=== PATIENT | male | born 1990 | race Caucasian/White ===

== ENCOUNTER 2024-11-17 21:31 | Inpatient (IN) | payer OTHER ==
[~2024-11-17] VITALS: Ht 175.3 cm; Wt 80.9 kg
[2024-11-17 22:28] LABS: CHLORIDE 104 mEq/L (98-107); POTASSIUM 3.9 mEq/L (3.5-5.1); SODIUM 143 mEq/L (136-145)
[2024-11-17 22:29] LABS: CARBON DIOXIDE 28 mEq/L (21-32)
[2024-11-17 22:30] LABS: CALCIUM 9.8 mg/dL (8.7-10.4)
[2024-11-17 22:33] LABS: BASOPHILS % 0.1 % (0.0-2.0); EOSINOPHILS % 2.9 % (0.0-5.0); HEMATOCRIT. 46.4 % (42.0-52.0); HEMOGLOBIN. 15.2 g/dL (14.0-18.0); LYMPHOCYTES % 23.6 % (20.0-50.0); MEAN CORPUSCULAR HEMOGLOBIN 30.5 pg (28.0-32.0); MEAN CORPUSCULAR HGB CONC 32.8 g/dL (31.0-37.0); MEAN CORPUSCULAR VOLUME 92.9 fL (80.0-94.0); MEAN PLATELET VOLUME 8.4 fl (7.4-10.4); MONOCYTES % 10.4 % (2.0-8.0); PLATELET 197 x1000/uL (130-400); RED BLOOD CELL COUNT 4.99 mill/uL (4.7-6.1); RED CELL DISTRIBUTION WIDTH 12.4 % (11.6-14.6); WHITE BLOOD COUNT 8.2 x1000/uL (4.5-11.0)
[2024-11-17 22:34] LABS: CREATININE 1.2 mg/dL (0.6-1.3); GLUCOSE 85 mg/dL (70-105); UREA NITROGEN BLOOD 17 mg/dL (9-23)
[2024-11-17 22:36] LABS: TROPONIN I HIGH SENSITIVITY < 4 ng/L (3.0-53)
[2024-11-17 23:09] LABS: PROTHROMBIN TIME 11.1 sec (9.6-11.0)
[2024-11-18] MEDS ORDERED: ONDANSETRON HCL 4MG/2ML INJ IV PRN (07:15)
[2024-11-18] MEDS ORDERED: ACETAMINOPHEN 325MG TABLET PO PRN ×2 (07:15)
[2024-11-18] MEDS: SODIUM CHLORIDE 0.9% 1,000 ML IV SCH (12:15)
[2024-11-18 14:25] VITALS: BP 119/78; PULSE 68; RESP 12; TEMP 36.6; O2SAT 98
[2024-11-18 14:39] VITALS: BP 119/78; PULSE 68; RESP 12; TEMP 36.6
[2024-11-18 17:03] LABS: *AMPHETAMINES SCREEN URINE NEGATIVE (NEGATIVE); *BENZODIAZEPINES SCREEN URINE NEGATIVE (NEGATIVE)
[2024-11-18 17:04] LABS: *BARBITURATES SCREEN URINE NEGATIVE (NEGATIVE); *COCAINE SCREEN URINE NEGATIVE (NEGATIVE); CANNABINOID URINE SCREEN PRESUMPTIVE POSITIVE (NEGATIVE); ECSTASY MDMA SCREEN URINE NEGATIVE (NEGATIVE); METHADONE URINE SCREEN NEGATIVE (NEGATIVE); OPIATES URINE SCREEN NEGATIVE (NEGATIVE); PHENCYCLIDINE URINE SCREEN NEGATIVE (NEGATIVE)
[2024-11-18 17:30] LABS: CLARITY URINE CLEAR (CLEAR); COLOR URINE YELLOW (YELLOW); GLUCOSE URINE NEGATIVE (NEGATIVE); KETONES URINE NEGATIVE (NEGATIVE); LEUKOCYTE ESTERASE URINE NEGATIVE (NEGATIVE); NITRITE URINE NEGATIVE (NEGATIVE); OCCULT BLOOD URINE NEGATIVE (NEGATIVE); PROTEIN URINE NEGATIVE (NEGATIVE); UROBILINOGEN URINE 0.2 E.U./dL (0.2-1.0)
[2024-11-18 20:00] VITALS: BP 118/65; PULSE 82; RESP 21; TEMP 36.7; O2SAT 95
[2024-11-19] VITALS: BP 106/69; PULSE 91; RESP 19; TEMP 36.8; O2SAT 96
[2024-11-19 04:00] VITALS: BP 112/77; PULSE 83; RESP 18; TEMP 36.6; O2SAT 98
[2024-11-19 06:34] LABS: HEPATITIS B SURFACE ANTIGEN NEGATIVE (Negative)
[2024-11-19 06:55] LABS: HEPATITIS C AB NON REACTIVE (Neg) (Negative)
[2024-11-19 06:58] LABS: HEMATOCRIT 32.3 % (42.0-52.0); MEAN CORPUSCULAR HEMOGLOBIN 31.7 pg (28.0-32.0); MEAN CORPUSCULAR HGB CONC 33.9 g/dL (31.0-37.0); MEAN CORPUSCULAR VOLUME 93.4 fL (80.0-94.0); PLATELET 386 x1000/uL (130-400); RED BLOOD CELL COUNT 3.46 mill/uL (4.7-6.1); RED CELL DISTRIBUTION WIDTH 12.8 % (11.6-14.6); WHITE BLOOD COUNT 15.9 x1000/uL (4.5-11.0)
[2024-11-19 08:00] VITALS: BP 95/62; PULSE 64; RESP 14; TEMP 36.8; O2SAT 97
[2024-11-19 12:00] VITALS: BP 112/81; PULSE 85; RESP 12; TEMP 36.6; O2SAT 97
[2024-11-19 16:00] VITALS: BP 115/89; PULSE 74; RESP 19; TEMP 36.7; O2SAT 97
[2024-11-19 17:01] LABS: CARBON DIOXIDE 26 mEq/L (21-32); CHLORIDE 105 mEq/L (98-107); POTASSIUM 4.3 mEq/L (3.5-5.1); SODIUM 141 mEq/L (136-145)
[2024-11-19 17:02] LABS: CALCIUM 9.2 mg/dL (8.7-10.4)
[2024-11-19 17:06] LABS: IRON 95 ug/dL (65-175)
[2024-11-19 17:07] LABS: GLUCOSE 77 mg/dL (70-105); UREA NITROGEN BLOOD 10 mg/dL (9-23)
[2024-11-19 17:08] LABS: ALANINE AMINOTRANSFERASE 23 IU/L (10-49)
[2024-11-19 17:09] LABS: ALBUMIN 4.2 g/dL (3.2-4.8); ASPARTATE AMINOTRANSFERASE 15 IU/L (<34); BILIRUBIN DIRECT 0.2 mg/dL (<=3.0); BILIRUBIN TOTAL 0.7 mg/dL (0.1-1.0); PHOSPHORUS 3.1 mg/dL (2.5-4.9); TOTAL IRON BINDING CAPACITY 140 ug/dl (250-425)
[2024-11-19 17:14] LABS: FERRITIN 216 ng/mL (22-322); FOLIC ACID (FOLATE) SERUM 13.53 ng/mL (>5.38)
[2024-11-19 17:15] LABS: VITAMIN B12 SERUM 587 pg/mL (211-911)
[2024-11-19 20:00] VITALS: BP 127/80; PULSE 80; RESP 16; TEMP 37.2; O2SAT 97
[2024-11-20] VITALS: BP 124/88; PULSE 99; RESP 18; TEMP 36.8; O2SAT 98
[2024-11-20 04:00] VITALS: BP 98/72; PULSE 66; RESP 12; TEMP 36.6; O2SAT 94
[2024-11-20 07:32] LABS: CARBON DIOXIDE 26 mEq/L (21-32); CHLORIDE 105 mEq/L (98-107); POTASSIUM 3.8 mEq/L (3.5-5.1); SODIUM 140 mEq/L (136-145)
[2024-11-20 07:33] LABS: CALCIUM 8.9 mg/dL (8.7-10.4)
[2024-11-20 07:38] LABS: GLUCOSE 92 mg/dL (70-105); UREA NITROGEN BLOOD 8 mg/dL (9-23)
[2024-11-20 07:41] LABS: EOSINOPHILS % 4.5 % (0.0-5.0); HEMATOCRIT. 44.2 % (42.0-52.0); HEMOGLOBIN. 14.7 g/dL (14.0-18.0); LYMPHOCYTES % 36.2 % (20.0-50.0); MEAN CORPUSCULAR HEMOGLOBIN 30.8 pg (28.0-32.0); MEAN CORPUSCULAR HGB CONC 33.1 g/dL (31.0-37.0); MEAN CORPUSCULAR VOLUME 92.9 fL (80.0-94.0); MEAN PLATELET VOLUME 8.9 fl (7.4-10.4); MONOCYTES % 11.3 % (2.0-8.0); PLATELET 173 x1000/uL (130-400); RED BLOOD CELL COUNT 4.76 mill/uL (4.7-6.1); RED CELL DISTRIBUTION WIDTH 12.2 % (11.6-14.6); WHITE BLOOD COUNT 5.8 x1000/uL (4.5-11.0)
[2024-11-20 08:00] VITALS: BP 108/59; PULSE 68; RESP 14; TEMP 36.6; O2SAT 95
[2024-11-20 12:00] VITALS: BP 112/77; PULSE 78; RESP 14; TEMP 36.7; O2SAT 97
[2024-11-20 17:12] VITALS: BP 112/77; PULSE 78; TEMP 98; O2SAT 98
[2024-11-20] MEDS ORDERED: IOHEXOL-300 100 ML BOTTLE ONE (22:44)
== END 2024-11-20 18:00 | disposition home or self-care (01) | DRG 379 ==
LOC: ER 21:31 → 3WST 11-18 00:24 → EDBEDREQDT 11-18 01:08 → EDBEDREQ 11-18 01:08 → EDBEDREQTM 11-18 01:08
PROVIDERS: ADMIT Internal Medicine; ATTEND Internal Medicine
DX: K62.5 Hemorrhage of anus and rectum (principal); K64.8 Other hemorrhoids; D64.9 Anemia, unspecified; D72.829 Elevated white blood cell count, unspecified
CPT/HCPCS: 36415; 71045; 74177; 80048; 80076; 80305; 81003; 82248; 82270; 82607; 82728; 82746; 83036; 83520; 83540; 83550; 83735; 84100; 84484; 85025; 85027; 85044; 86256; 86671; 86705; 86850; 86900; 87340; 93005; 99285; Q9967